=== PATIENT | male | born 1975 | race Hispanic/Latino ===

== ENCOUNTER 2016-04-29 18:52 | Emergency (ER) | payer SELFPAY ==
[2016-04-29 19:27] LABS: #Basophils 0.1 thou/uL (0.0-0.2); #Eosinphils 0.3 thou/uL (0.0-0.7); #Lymphocytes 2.3 thou/uL (1.20-3.40); #Neutrophils 9.5 thou/uL (1.40-6.50); %Basophils 0.5 % (0.0-1.0); %Eosinophils 2.1 % (0.0-10.0); %Lymphocytes 17.4 % (21.0-51.0); %Monocytes 7.4 % (0.0-10.0); Hematocrit 45.6 % (42.0-52.0); Mean Platelet Volume 8.3 fL (7.4-10.4); Red Blood Cell (RBC) Count 5.15 mill/uL (4.70-6.10)
[2016-04-29] MEDS ORDERED: Morphine Sulfate 2 MG/ML SYRINGE ONE (19:38)
[2016-04-29] MEDS ORDERED: HYDROcodone/Acetaminophen 10/325 mg Tablet ONE (20:16)
--- NOTE | 2016-04-29 20:34 | RAD ---
PORTABLE SEMIUPRIGHT FRONTAL CHEST RADIOGRAPH 04/29/16 COMPARISON: None. HISTORY: Fall, pain. FINDINGS: The lungs are clear. Heart and mediastinal contours are within normal limits. No acute osseous abnor mality. IMPRESSION: No acute findings. POS: [facility]
--- NOTE | 2016-04-29 21:28 | CT ---
HEAD CT WITHOUT CONTRAST 04/29/16 COMPARISON: None. HISTORY: Fall, head trauma. TECHNIQUE: Serial axial CT imaging is obtained at 5 mm intervals from vertex through skull base without contras t. Coronal and sagittal reformatted imaging obtained. FINDINGS: The imaged paranasal sinuses and mastoid air cells are well aerated. No displaced calvarial fracture. No intracranial hemorrhage, midline shift, mass effect, or ventricu lar enlargement. IMPRESSION: No acute findings. POS: [facility]
--- NOTE | 2016-04-29 22:53 | CT ---
CERVICAL SPINE CT WITHOUT CONTRAST 04/29/16 COMPARISON: None. HISTORY: Trauma, pain. TECHNIQUE: Serial axial CT imaging at 2.5 mm intervals from the thoracic inlet through the skull base without c ontrast with coronal and sagittal reformatted imaging. FINDINGS: Imaged lung apices appear unremarkable. Imaged paranasal sinuses/mastoid air cells are well aerated. The C1 ring is intact. The craniocervic al junction, dens, occipital condyles, and C1-2 articulation appear grossly unremarkable. The cervical vertebral body height and alignment appears within normal limits. No prevertebral soft tissue swelling. No displaced fracture or evidence of dislocation seen. IMPRESSION: No acute findings. POS: [facility]
--- NOTE | 2016-04-29 23:00 | CT ---
CT OF THE PELVIS 04/29/16 COMPARISON: None. HISTORY: Fall, pain, trauma. TECHNIQUE: Serial axial CT imaging at 2.5 mm intervals from the superior portion of L4 through the proximal fem ora without contrast. Coronal and sagittal reformatted imaging obtained. FINDINGS: There is no widening of the pubic symphysis or either sacroiliac joint. The inferior and superior pu bic rami appear unremarkable. Imaged portions of the proximal femur appears unremarkable bilaterally. There is an obliquely oriented fracture at the base of the L4 transverse process on the left. The L4 vertebral body is not fully imaged on this exam. Limited assessment of the nonosseous structures demonstrates no acute findings. IMPRESSION: Obliquely oriented fracture involving the L4 transverse process on the left. No acute fracture withi n the pelvis. POS: [facility]
--- NOTE | 2016-04-29 23:36 | CT ---
LUMBAR SPINE CT WITHOUT CONTRAST 04/29/16 COMPARISON: None. HISTORY: Trauma. TECHNIQUE: Serial axial CT imaging at 2.5 mm intervals through the lumbar spine without contrast. Coronal and s agittal reformatted imaging obtained. FINDINGS: Punctate nonobstructing stones suspected in mid pole left kidney on image 33. Evaluation for central canal and/or neural foraminal stenosis within the lumbar spine is limited on routine CT. Five lumbar type vertebral bodies are present Lumbar vertebral body height and alignment appears wit hin normal limits. There is an obliquely oriented mildly displaced fracture involving the distal tip of the L3 left tra nsverse process. There is also an obliquely oriented fracture involving the base of the L4 left raymundo sverse process. IMPRESSION: Fracture deformities involving the left L3 and left L4 transverse processes. POS: [facility]
== END 2016-04-29 21:02 | disposition home or self-care (01) ==
LOC: NAV ERS 18:52
DX: S32.039A Unspecified fracture of third lumbar vertebra, initial encounter for closed fracture (principal); S32.049A Unspecified fracture of fourth lumbar vertebra, initial encounter for closed fracture; S10.93XA Contusion of unspecified part of neck, initial encounter; S30.0XXA Contusion of lower back and pelvis, initial encounter; V89.2XXA Person injured in unspecified motor-vehicle accident, traffic, initial encounter
CPT/HCPCS: 70450; 71010; 72125; 72131; 72192; 85025; 96374; J2270

== ENCOUNTER 2016-11-26 17:27 | Emergency (ER) | payer SELFPAY ==
[2016-11-26] MEDS ORDERED: Ondansetron HCl/PF 4 MG/2 ML Vial ONE (17:56)
[2016-11-26] MEDS ORDERED: Ketorolac Tromethamine 30 MG/ML VIAL ONE ×2 (17:56→19:05)
[2016-11-26 18:11] LABS: #Basophils 0.1 thou/uL (0.0-0.2); #Eosinphils 0.1 thou/uL (0.0-0.7); #Lymphocytes 3.6 thou/uL (1.20-3.40); #Monocytes 0.6 thou/uL (0.11-0.59); #Neutrophils 4.7 thou/uL (1.40-6.50); %Basophils 0.8 % (0.0-1.0); %Eosinophils 1.5 % (0.0-10.0); %Lymphocytes 39.6 % (21.0-51.0); %Monocytes 6.5 % (0.0-10.0); %Neutrophils 51.7 % (42.0-75.0); Hemoglobin 15.2 g/dL (14.0-18.0); Mean Corpuscular HGB CONC 32.5 g/dL (32.0-36.0); Mean Corpuscular Hemoglobin 28.4 pg (27.0-31.0); Mean Corpuscular Volume 87.3 fl (80.0-94.0); Mean Platelet Volume 8.7 fL (7.4-10.4); Platelet Count 182 thou/uL (130-400); RBC Distribution Width 12.7 % (11.5-14.5); Red Blood Cell (RBC) Count 5.36 mill/uL (4.70-6.10); White Blood Cell (WBC) Count 9.1 thou/uL (4.8-10.8)
[2016-11-26 18:20] LABS: Bilirubin Negative (Negative); Blood, Urine Large (Negative); Clarity Clear (Clear); Glucose, Urine (Dipstick) Negative (Negative); Leukocyte Negative (Negative); Nitrite Negative (Negative); Protein, Urine (Dipstick) Negative (Neg-Trace); Urobilinogen 0.2 mg/dL (0.2-1.0); pH, Urine 5.5 (5.0-9.0)
[2016-11-26 18:21] LABS: ALT (SGPT) 91 U/L (8-55); AST (SGOT) 53 U/L (5-34); Albumin 4.1 g/dL (3.5-5.0); Alkaline Phosphatase 75 U/L (40-150); Anion Gap 16 mmol/L (10-20); BUN (Urea Nitrogen) 15 mg/dL (8.9-20.6); Bilirubin, Total 0.5 mg/dL (0.2-1.2); Calc. Creatinine Clearance 0 mL/min (70-130); Calcium 9.4 mg/dL (7.8-10.44); Carbon Dioxide 21 mmol/L (22-29); Chloride 108 mmol/L (98-107); Estimated GFR-MDRD 81; Globulin 3.3 g/dL (2.4-3.5); Glucose 125 mg/dL (70-105); Potassium 3.7 mmol/L (3.5-5.1); Protein, Total 7.4 g/dL (6.0-8.3); Sodium 141 mmol/L (136-145)
[2016-11-26 18:23] LABS: Specific Gravity, Urine 1.029 (1.002-1.036)
--- NOTE | 2016-11-26 18:39 | CT ---
CT OF THE ABDOMEN AND PELVIS WITHOUT IV CONTRAST: 11/26/16 INDICATION: 41-year-old male with right sided abdominal pain for 30 minutes. COMPARISON: CT of the pelvis dated 04/29/16. FINDINGS: There is bibasilar atelectasis. There is a calcified granuloma on the right middle lobe. There is fatty infiltration of the liver. Unopacified pancreas, spleen, adrenal glands, and kidneys appear within normal limits. There is a 2 mm calculus at the right UVJ. The bladder is decompressed. Interval healing of the left L4 transverse process fracture. No acute osseous abnormality is evident . IMPRESSION: 1. 2 mm right UVJ stone without significant right sided hydronephrosis. 2. Fatty liver. 3. Findings of prior granulomatous disease. 4. Interval healing of previously seen left L4 transverse process fracture. POS: [facility]
[2016-11-26 18:41] LABS: Bacteria/HPF Rare-Few HPF (None Seen); RBC/HPF 21-50 HPF (0-3); WBC/HPF 0-3 HPF (0-3)
[2016-11-26] MEDS ORDERED: Tamsulosin HCl 0.4 MG CAP ONE (19:05)
== END 2016-11-26 19:30 | disposition home or self-care (01) ==
LOC: NAV ERS 17:27
DX: N13.2 Hydronephrosis with renal and ureteral calculous obstruction (principal)
CPT/HCPCS: 74176; 80053; 81003; 81015; 85025; 96374; 96375; 96376; J1885; J2405